=== PATIENT | female | born 1990 | race Caucasian/White ===

== ENCOUNTER 2019-01-01 11:56 | Emergency (ER) | payer BC ==
--- NOTE | 2019-01-01 12:03 | ERPHSYRPT ---
- History of Present Illness Time Seen by Provider: 01/01/19 12:02 Historian: patient Exam Limitations: no limitations Physician History: 28 y/o white female who is 24 weeks presents with 11 day h/o constipation. pt has had issues like this in the past. pt has been using otc meds but no magnesium citrate and no enemas. pt states she is passing liquid stool but no firm stool and no flatus. pt had one episode of vomitus and tasted of stool. pt had h/o sbo once in the past. pt has no abd pain and is not nauseated now. Timing/Duration: day(s) (11) Activities at Onset: none Severity of Pain-Max: none Severity of Pain-Current: none Associated Symptoms: diarrhea, vomiting (once), weakness, No nausea, No shortness of breath Previous symptoms: same symptoms as today Allergies/Adverse Reactions: codeine Allergy (Verified 01/01/19 12:17) Sulfa (Sulfonamide Antibiotics) Allergy (Verified 01/01/19 12:17) Home Medications: Vits W-Ca,Fe,FA(<1Mg) [] 1 tab PO DAILY 05/31/14 [History] Docusate Sodium 100 mg [Colace 100 MG] 100 mg DAILY 01/01/19 [History] Fiber [Fiber Diet] 1 ea DAILY 01/01/19 [History] - Review of Systems Constitutional: No Symptoms Eyes: No Symptoms Ears, Nose, & Throat: No Symptoms Respiratory: No Symptoms Cardiac: No Symptoms Abdominal/Gastrointestinal: Vomiting, Diarrhea Genitourinary Symptoms: No Symptoms Musculoskeletal: No Symptoms Skin: No Symptoms Neurological: No Symptoms Psychological: No Symptoms Endocrine: No Symptoms Hematologic/Lymphatic: No Symptoms Immunological/Allergic: No Symptoms All Other Systems: Reviewed and Negative - Past Medical History Pertinent Past Medical History: No Neurological History: No Pertinent History ENT History: No Pertinent History Cardiac History: No Pertinent History Respiratory History: No Pertinent History Endocrine Medical History: No Pertinent History Musculoskeletal History: No Pertinent History GI Medical History: No Pertinent History History: No Pertinent History Psycho-Social History: No Pertinent History Female Reproductive Disorders: No Pertinent History - Past Surgical History Past Surgical History: Yes Neuro Surgical History: No Pertinent History Cardiac: No Pertinent History Respiratory: No Pertinent History Gastrointestinal: Other, Cholecystectomy Musculoskeletal: No Pertinent History Female Surgical History: No Pertinent History Other Surgical History: colonoscopy x2 - Social History Smoking Status: Never smoker Exposure to second hand smoke: No Drug Use: none - Nursing Vital Signs Nursing Vital Signs: Initial Vital Signs Temperature 98.0 F 01/01/19 12:10 Pulse Rate 90 01/01/19 12:10 Respiratory Rate 16 01/01/19 12:10 Blood Pressure 116/83 01/01/19 12:10 O2 Sat by Pulse Oximetry 100 01/01/19 12:10 Pain Scale Pain Intensity 4 - Physical Exam General Appearance: no apparent distress, alert, anxiety Eye Exam: PERRL/EOMI Ears, Nose, Throat Exam: normal ENT inspection, moist mucous membranes Neck Exam: normal inspection, non-tender, supple, full range of motion Respiratory Exam: normal breath sounds, lungs clear, airway intact, No chest tenderness, No respiratory distress Cardiovascular Exam: regular rate/rhythm, normal heart sounds Gastrointestinal/Abdomen Exam: soft, normal bowel sounds, tenderness, other ( abd. fht per rn 150s), No distention, No guarding, No rebound Pelvic Exam: not done Rectal Exam: not done Back Exam: normal inspection, normal range of motion, No CVA tenderness, No vertebral tenderness Extremity Exam: normal inspection, normal range of motion, pelvis stable Neurologic Exam: alert, oriented x 3, cooperative, lever operator II-XII nml as tested, normal mood/affect, nml cerebellar function, nml station & gait Skin Exam: normal color, warm, dry Lymphatic Exam: No adenopathy SpO2 Interpretation: normal O2 Delivery: Room Air - Course Nursing assessment & vital signs reviewed: Yes Ordered Tests: Active Orders 24 hr Category Date Time Status Enema STAT Care 01/01/19 12:32 Active IV Insertion STAT Care 01/01/19 12:30 Active AMYLASE Stat Lab 01/01/19 12:45 Completed CBC W DIFF Stat Lab 01/01/19 12:45 Completed CMP Stat Lab 01/01/19 12:45 Completed LIPASE Stat Lab 01/01/19 12:45 Completed Lactic Acid Stat Lab 01/01/19 12:56 Completed UA W/RFX UR CULTURE Stat Lab 01/01/19 13:00 Completed Medication Summary Discontinued Medications Generic Name Dose Route Start Last Admin Trade Name Freq PRN Reason Stop Dose Admin Sodium Chloride 1,000 mls @ 999 mls/hr 01/01/19 12:30 01/01/19 12:36 Sodium Chloride 0.9% 1000 Ml IV 01/01/19 13:30 999 mls/hr .Q1H1M STA Administration Sodium Chloride Confirm 01/01/19 12:34 Sodium Chloride 0.9% 1000 Ml Administered 01/01/19 12:35 Dose 1,000 mls @ ud .ROUTE .STK-MED ONE Magnesium Citrate 150 ml 01/01/19 12:31 01/01/19 12:35 Citroma 296 Ml PO 01/01/19 12:32 150 ml 1XONLY ONE Administration Magnesium Citrate Confirm 01/01/19 12:34 Citroma 296 Ml Administered 01/01/19 12:35 Dose 296 ml .ROUTE .STK-MED ONE Lab/Rad Data: Laboratory Result Diagrams 01/01/19 12:45 01/01/19 12:45 Laboratory Results 01/01/19 01/01/19 01/01/19 Range/Units 13:00 12:56 12:45 WBC (4.0-10.5) K/mm3 RBC (4.1-5.4) M/mm3 Hgb (12.0-16.0) gm/dl Hct (35-47) % MCV (78-100) fl MCH (26-32) pg MCHC (32-36) g/dl RDW (11.5-14.0) % Plt Count (150-450) K/mm3 MPV (6-9.5) fl Gran % (36.0-66.0) % Eos # (Auto) (0-0.5) Absolute Lymphs (auto) (1.0-4.6) Absolute Monos (auto) (0.0-1.3) Lymphocytes % (24.0-44.0) % Monocytes % (0.0-12.0) % Eosinophils % (0.00-5.0) % Basophils % (0.0-0.4) % Absolute Granulocytes (1.4-6.9) Basophils # (0-0.4) Sodium 138 (137-145) mmol/L Potassium 3.8 (3.5-5.1) mmol/L Chloride 107 (98-107) mmol/L Carbon Dioxide 26 (22-30) mmol/L Anion Gap 9.6 (5-15) MEQ/L BUN 8 (7-17) mg/dL Creatinine 0.47 L (0.52-1.04) mg/dL Estimated GFR > 60.0 ML/MIN Glucose 75 (74-106) mg/dL Lactic Acid 0.7 (0.4-2.0) Calcium 8.9 (8.4-10.2) mg/dL Total Bilirubin 0.30 (0.2-1.3) mg/dL AST 19 (14-36) U/L ALT 10 (0-35) U/L Alkaline Phosphatase 54 (38-126) U/L Serum Total Protein 6.8 (6.3-8.2) g/dL Albumin 3.6 (3.5-5.0) g/dL Amylase 88 (30-110) U/L Lipase 63 (23-300) U/L Urine Color MURIEL (YELLOW) Urine Appearance CLOUDY (CLEAR) Urine pH 8.0 (5-6) Ur Specific Cow[place]rey 1.020 (1.005-1.025) Urine Protein NEGATIVE (Negative) Urine Ketones NEGATIVE (NEGATIVE) Urine Blood NEGATIVE (0-5) Yoel/ul Urine Nitrite NEGATIVE (NEGATIVE) Urine Bilirubin NEGATIVE (NEGATIVE) Urine Urobilinogen NEGATIVE (0-1) mg/dL Ur Leukocyte Esterase NEGATIVE (NEGATIVE) Urine WBC (Auto) 0-2 (0-5) /HPF Urine RBC (Auto) NONE SEEN (0-2) /HPF U Epithel Cells (Auto) RARE (FEW) /HPF Urine Bacteria (Auto) RARE (NEGATIVE) /HPF Urine Mucus (Auto) SLIGHT (NEGATIVE) /HPF Urine Culture Reflexed NO (NO) Urine Glucose NEGATIVE (NEGATIVE) mg/dL 01/01/19 Range/Units 12:45 WBC 11.8 H (4.0-10.5) K/mm3 RBC 3.40 L (4.1-5.4) M/mm3 Hgb 11.1 L (12.0-16.0) gm/dl Hct 34.0 L (35-47) % MCV 100.0 (78-100) fl MCH 32.6 H (26-32) pg MCHC 32.6 (32-36) g/dl RDW 13.4 (11.5-14.0) % Plt Count 250 (150-450) K/mm3 MPV 10.8 H (6-9.5) fl Gran % 80.7 H (36.0-66.0) % Eos # (Auto) 0.12 (0-0.5) Absolute Lymphs (auto) 1.41 (1.0-4.6) Absolute Monos (auto) 0.69 (0.0-1.3) Lymphocytes % 12.0 L (24.0-44.0) % Monocytes % 5.9 (0.0-12.0) % Eosinophils % 1.0 (0.00-5.0) % Basophils % 0.4 (0.0-0.4) % Absolute Granulocytes 9.49 H (1.4-6.9) Basophils # 0.05 (0-0.4) Sodium (137-145) mmol/L Potassium (3.5-5.1) mmol/L Chloride (98-107) mmol/L Carbon Dioxide (22-30) mmol/L Anion Gap (5-15) MEQ/L BUN (7-17) mg/dL Creatinine (0.52-1.04) mg/dL Estimated GFR ML/MIN Glucose (74-106) mg/dL Lactic Acid (0.4-2.0) Calcium (8.4-10.2) mg/dL Total Bilirubin (0.2-1.3) mg/dL AST (14-36) U/L ALT (0-35) U/L Alkaline Phosphatase (38-126) U/L Serum Total Protein (6.3-8.2) g/dL Albumin (3.5-5.0) g/dL Amylase (30-110) U/L Lipase (23-300) U/L Urine Color (YELLOW) Urine Appearance (CLEAR) Urine pH (5-6) Ur Specific [place] (1.005-1.025) Urine Protein (Negative) Urine Ketones (NEGATIVE) Urine Blood (0-5) Yoel/ul Urine Nitrite (NEGATIVE) Urine Bilirubin (NEGATIVE) Urine Urobilinogen (0-1) mg/dL Ur Leukocyte Esterase (NEGATIVE) Urine WBC (Auto) (0-5) /HPF Urine RBC (Auto) (0-2) /HPF U Epithel Cells (Auto) (FEW) /HPF Urine Bacteria (Auto) (NEGATIVE) /HPF Urine Mucus (Auto) (NEGATIVE) /HPF Urine Culture Reflexed (NO) Urine Glucose (NEGATIVE) mg/dL - Progress Progress: unchanged, re-examined Progress Note: 01/01/19 14:43 pt did not have sig response with 1/2 bottle mag citrate and two soap suds enemas. i performed a digital rectal exam. no stool in the rectal vault. pt does not want xray. pt and i decided, since she does not have any abd pain and does not have nausea or vomiting, she will consume clear to full liquid diet and follow up with dr. love. Counseled pt/family regarding: lab results, diagnosis, need for follow-up - Departure Departure Disposition: Home Clinical Impression: Constipation Condition: Stable Critical Care Time: No Referrals: ROBINSON LOVE [Primary Care Provider] - Additional Instructions: clear to full liquid diet as tolerated. return to ED if nausea, vomiting or abdominal pain present. follow up with dr. love for further management.
[2019-01-01 12:17] VITALS: O2SAT 100
[2019-01-01] MEDS ORDERED: Sodium Chloride 0.9% 1000 ML 1,000 ML IV STA (12:30)
[2019-01-01] MEDS ORDERED: CITROMA 296 ML PO ONE (12:31)
[2019-01-01] MEDS ORDERED: CITROMA 296 ML ONE (12:34)
[2019-01-01] MEDS ORDERED: Sodium Chloride 0.9% 1000 ML 1,000 ML ONE (12:34)
[2019-01-01 12:53] LABS: BASOPHIL % 0.4 % (0.0-0.4); Basophil (Absolute #) 0.05 (0-0.4); Eosinophil (Absolute #) 0.12 (0-0.5); Granulocyte Absolute (ANC) 9.49 (1.4-6.9); Granulocytes % 80.7 % (36.0-66.0); Hemoglobin 11.1 gm/dl (12.0-16.0); Lymphocyte (Absolute #) 1.41 (1.0-4.6); Mean Corpuscular Hemoglobin 32.6 pg (26-32); Mean Corpuscular Hgb Concent. 32.6 g/dl (32-36); Mean Platelet Volume 10.8 fl (6-9.5); Monocytes % 5.9 % (0.0-12.0); Platelet Count 250 K/mm3 (150-450); Red Cell Distribution Width 13.4 % (11.5-14.0); White Blood Count 11.8 K/mm3 (4.0-10.5)
[2019-01-01 13:02] LABS: ALBUMIN 3.6 g/dL (3.5-5.0); ALKALINE PHOSPHATASE 54 U/L (38-126); AMYLASE 88 U/L (30-110); ANION GAP 9.6 MEQ/L (5-15); BLOOD UREA NITROGEN 8 mg/dL (7-17); CHLORIDE 107 mmol/L (98-107); Calcium 8.9 mg/dL (8.4-10.2); Carbon Dioxide 26 mmol/L (22-30); Creatinine 1 0.47 mg/dL (0.52-1.04); Glucose 75 mg/dL (74-106); LIPASE 63 U/L (23-300); Potassium 3.8 mmol/L (3.5-5.1); SGOT/AST 19 U/L (14-36); SGPT/ALT 10 U/L (0-35); SODIUM 138 mmol/L (137-145); Total Protein 6.8 g/dL (6.3-8.2)
[2019-01-01 13:10] LABS: Appearance CLOUDY (CLEAR); Bacteria RARE /HPF (NEGATIVE); Bilirubin NEGATIVE (NEGATIVE); Blood NEGATIVE Ery/ul (0-5); Epithelial Cells RARE /HPF (FEW); Glucose NEGATIVE (NEGATIVE); Ketones NEGATIVE (NEGATIVE); Leukocyte Esterase NEGATIVE (NEGATIVE); Mucus SLIGHT /HPF (NEGATIVE); Nitrite NEGATIVE (NEGATIVE); Protein,Urine Dip NEGATIVE (Negative); RBC NONE SEEN /HPF (0-2); Urobilinogen NEGATIVE mg/dL (0-1); WBC 0-2 /HPF (0-5)
[2019-01-01 14:49] VITALS: BP 121/67; PULSE 79
== END 2019-01-01 15:13 | disposition home or self-care (01) ==
LOC: ED 11:56
DX: K59.00 Constipation, unspecified (principal)
CPT/HCPCS: 36000; 36415; 80053; 81001; 82150; 83605; 83690; 85025; 96360; 96361; 99284; A9270-GY